=== PATIENT | male | born 1940 | race Caucasian/White ===

== ENCOUNTER 2017-02-19 00:13 | Inpatient (IN) | payer MEDICARE ==
[~2017-02-19] VITALS: Ht 172.7 cm; Wt 108.0 kg
[2017-02-19] MEDS ORDERED: ASCO500T9 PO (01:04)
[2017-02-19] MEDS ORDERED: IPRA0.2S6 NEB (01:04)
[2017-02-19] MEDS ORDERED: FURO-151 PO (01:04)
[2017-02-19] MEDS ORDERED: BLOO-140 IN (01:04)
[2017-02-19] MEDS ORDERED: ACET325T53 PO (01:04)
[2017-02-19] MEDS ORDERED: NA P133E RC (01:04)
[2017-02-19] MEDS ORDERED: DOCU-141 PO (01:04)
[2017-02-19] MEDS ORDERED: PANT40TA2 PO (01:04)
[2017-02-19] MEDS ORDERED: BISA10SU12 RC (01:04)
[2017-02-19] MEDS ORDERED: VITA1TAB20 PO (01:04)
[2017-02-19] MEDS ORDERED: INSU100V7 SQ (01:04)
[2017-02-19] MEDS ORDERED: METF500T4 PO (01:04)
[2017-02-19] MEDS ORDERED: ATOR10TA PO (01:04)
[2017-02-19] MEDS ORDERED: CARV3.122 PO (01:04)
[2017-02-19] MEDS ORDERED: POTA10CA43 PO (01:04)
[2017-02-19] MEDS ORDERED: FERR-58 PO (01:04)
[2017-02-19] MEDS ORDERED: ALBU8.5H8 IH (01:04)
[2017-02-19] MEDS ORDERED: MULT-213 PO (01:04)
[2017-02-19] MEDS ORDERED: MAGN400O6 PO (01:04)
[2017-02-19] MEDS ORDERED: ZOLP10TA2 PO (01:04)
[2017-02-19] MEDS ORDERED: APIX5TAB PO (01:04)
[2017-02-19 01:20] LABS: BASOPHILS % (AUTO) 0.3 % (0.0-2.0); EOSINOPHILS # (AUTO) 0.6 K/uL (0.0-0.7); EOSINOPHILS % (AUTO) 6.2 % (0.0-7.0); HEMATOCRIT 37.5 % (36.7-47.1); HEMOGLOBIN 12.3 g/dL (12.5-16.3); MEAN CORPUSCULAR HEMOGLOBIN 30.1 uug (23.8-33.4); MEAN CORPUSCULAR HGB CONC 33 g/dL (32.5-36.3); MONOCYTES # (AUTO) 1.1 K/uL (2.0-10.0); MONOCYTES % (AUTO) 12.7 % (0.0-11.0); NEUTROPHILS # (AUTO) 6.2 K/uL (1.8-8.9); NEUTROPHILS % (AUTO) 69.8 % (38.5-71.5); PLATELET COUNT (AUTO) 176 K/uL (152-348); RED BLOOD CELL COUNT(AUTO) 4.08 MIL/uL (4.06-5.63); WHITE BLOOD COUNT (AUTO) 8.9 K/uL (3.6-10.2)
--- NOTE | 2017-02-19 01:30 | NUR ---
Patient plced on Bipap as ordered by Dr Stephenson with setting of IPAP 17,EPAP 4,Rate 19, and 50% of o2
[2017-02-19 01:36] LABS: ALANINE AMINOTRANSFERASE 42 U/L (16-63); ALKALINE PHOSPHATASE 134 U/L (50-136); ASPARTATE AMINOTRANSFERASE 32 U/L (15-37); BILIRUBIN,DIRECT 0.7 mg/dL (0.0-0.2); BILIRUBIN,TOTAL 1.5 mg/dL (0.2-1.0); CARBON DIOXIDE 36 mmol/L (21-32); CHLORIDE 99 mmol/L (98-107); CREATININE 1.7 mg/dL (0.6-1.3); ETHANOL < 3 MG/DL (0-0); GLUCOSE 90 mg/dL (74-106); POTASSIUM 3.4 mmol/L (3.5-5.1); UREA NITROGEN, BLOOD 18 mg/dL (7-18)
[2017-02-19 01:44] LABS: ACETAMINOPHEN < 2.0 ug/mL (10-30)
[2017-02-19 02:01] LABS: *BILIRUBIN,URIN NEGATIVE (NEGATIVE); *BLOOD, URINE Trace-intact (NEGATIVE); *CLARITY,URINE CLEAR (CLEAR); *COLOR,URINE AMBER (YELLOW); *KETONES,URINE NEGATIVE (NEGATIVE); *PROTEIN,URINE NEGATIVE (NEGATIVE); *UROBILINOGEN,URINE 0.2 E.U./dl (NORMAL); LEUKOCYTE ESTERASE ,URINE NEGATIVE (NEGATIVE); NITRITE, URINE NEGATIVE (NEGATIVE); UGLUCOSE NEGATIVE (NEGATIVE)
[2017-02-19 02:14] LABS: BACTERIA,URINE NONE SEEN /HPF (NONE SEEN); SQUAMOUS EPITHELIAL CELL,UR FEW /HPF (NONE SEEN); WBC,URINE 0-3 /HPF (0-3)
[2017-02-19] MEDS ORDERED: POTASSIUM CHLORIDE 10 MEQ CAPSULE.SA PO ONE (02:30)
--- NOTE | 2017-02-19 02:30 | NUR ---
DR AVILES SPOKE WITH LUIS ANTONIO HARMON [employer] WORKER FOR [facility]. SHE WILL ADMIT PATIENT TO TELE FLOOR. NO BED AVAILABLE TO ADMIT PATIENT TO FLOOR AT THIS TIME. WILL HOLD PATIENT AT ER UNTIL BED AVAILABLE
[2017-02-19] MEDS ORDERED: LORAZEPAM 2 MG/1 ML VIAL IV ONE ×2 (02:45→03:15)
--- NOTE | 2017-02-19 02:48 | NUR ---
patient confused taking off bipap. Made Dr Stephenson aware
[2017-02-19] MEDS ORDERED: LORAZEPAM 2 MG/1 ML VIAL ONE ×2 (02:56→03:20)
--- NOTE | 2017-02-19 03:00 | NUR ---
PATIENT RESTLESS. TAKING CONSTANTLY TAKING OFF BIPAP. DR AVILES MADE AWARE.ORDER RECIEVED AND CARRIED OUT
[2017-02-19] MEDS ORDERED: POTASSIUM CHLORIDE 10 MEQ CAPSULE.SA ONE ×2 (03:11→10:13)
--- NOTE | 2017-02-19 03:50 | NUR ---
PATIENT SLEEPING WITH NO DISTRESS NOTED. TOLERATING BIPAP.
[2017-02-19] MEDS ORDERED: IPRATROPIUM BROMIDE 0.5 MG/2.5 ML NEBU NEB PRN (07:45)
[2017-02-19] MEDS ORDERED: ONDANSETRON 4 MG/2 ML VIAL IV PRN (07:45)
[2017-02-19] MEDS ORDERED: INSULIN REGULAR, HUMAN 300 UNIT/3 ML VIAL SQ PRN (07:45)
[2017-02-19] MEDS ORDERED: ACETAMINOPHEN 325 MG TABLET PO PRN ×2 (07:45)
[2017-02-19] MEDS ORDERED: Z GUARD REMEDY PASTE 57 GM TUBE TOP PRN (07:45)
[2017-02-19] MEDS ORDERED: ALBUTEROL SULFATE 2.5 MG/ 0.5 ML NEBU NEB PRN (07:45)
[2017-02-19] MEDS ORDERED: DEXTROSE 50% 50 ML DISP.SYRIN IV PRN (07:45)
[2017-02-19] MEDS ORDERED: ZOLPIDEM 5 MG TABLET PO PRN ×2 (07:45→21:00)
[2017-02-19] MEDS ORDERED: FLEET ENEMA 133 ML BOTTLE RC PRN (07:45)
[2017-02-19] MEDS ORDERED: BISACODYL 10 MG SUPP.RECT RC PRN (07:45)
[2017-02-19] MEDS ORDERED: MAGNESIUM HYDROXIDE 30 ML LIQUID UDC PO PRN ×2 (07:45)
[2017-02-19] MEDS ORDERED: FUROSEMIDE 40 MG TABLET PO SCH (09:00)
[2017-02-19] MEDS ORDERED: APIXABAN 5 MG TABLET PO ONE (10:00)
[2017-02-19] MEDS ORDERED: IPRATROPIUM BROMIDE 0.5 MG/2.5 ML NEBU ONE (10:02)
[2017-02-19] MEDS ORDERED: ALBUTEROL SULFATE 2.5 MG/ 0.5 ML NEBU ONE (10:03)
[2017-02-19] MEDS ORDERED: ASCORBIC ACID 500 MG TABLET ONE (10:09)
[2017-02-19] MEDS ORDERED: DOCUSATE SODIUM 100 MG CAPSULE PO ONE (10:10)
[2017-02-19] MEDS ORDERED: CARVEDILOL 3.125 MG TABLET ONE (10:10)
[2017-02-19] MEDS: ASCORBIC ACID 500 MG TABLET PO SCH (10:12)
[2017-02-19] MEDS ORDERED: PANTOPRAZOLE SODIUM 40 MG TABLET.DR PO ONE (10:13)
[2017-02-19] MEDS: CARVEDILOL 3.125 MG TABLET PO SCH ×2 (10:13→17:43)
[2017-02-19] MEDS: DOCUSATE SODIUM 100 MG CAPSULE PO SCH (10:17)
[2017-02-19] MEDS: POTASSIUM CHLORIDE 10 MEQ CAPSULE.SA PO SCH (10:18)
[2017-02-19] MEDS: PANTOPRAZOLE SODIUM 40 MG TABLET.DR PO SCH (10:18)
[2017-02-19] MEDS ORDERED: FUROSEMIDE 20 MG TABLET ONE (10:38)
--- NOTE | 2017-02-19 11:15 | NUR ---
PT ABLE TO GET UP WITH PT FOR TX. REMAINS STANLE ON NASAL O2.
[2017-02-19] MEDS: VITAMIN B COMPLEX 1 TABLET PO SCH (11:32)
[2017-02-19] MEDS: MULTIVITAMINS,THERAPEUTIC TABLET PO SCH (11:33)
[2017-02-19] MEDS: FERROUS SULFATE 325 MG TABEC PO SCH ×2 (11:35→17:42)
[2017-02-19] MEDS: BLOOD SUGAR DIAGNOSTIC 1 EACH STRIP VI SCH ×3 (11:52→20:32)
--- NOTE | 2017-02-19 14:30 | NUR ---
VENOUS DOPPLER US DONE AT BEDSIDE.
--- NOTE | 2017-02-19 16:30 | NUR ---
REPORT GIVEN TO ALANIS ORDONEZ. PT REMAINS AWAKE , VERBALLY RESPONSIVE AND COOPERATIVE. TRANSFERRED TO TELEMETRY IN GUARDED CONDITION.
--- NOTE | 2017-02-19 17:00 | NUR ---
NEW PATIENT FROM ER TO ROOM 227 AWAKE COOPERATE WELL SOME FORGETFUL BUT FOLLOW SIMPLE DIRECTION WELL ON FALL AND ASPIRATION PRECAUTION BED ALARM ON AND CALL LIGHT IN REACH
[2017-02-19 17:09] VITALS: BP 124/55
--- NOTE | 2017-02-19 18:00 | NUR ---
EAT DINNER WITH GOOD APPETITE NO SOB CONTINUE O2 AT 2L O2 SAT WAS 98% DR BECKETT SEEN PATIENT THIS PM
[2017-02-19 19:30] VITALS: BP 121/67
--- NOTE | 2017-02-19 19:30 | NUR ---
Received patient laying in bed. HOB elevated. A&O x 2 only. On O2 2L NC. TELE SR. No acute distress noted. Noted multiple open wounds and bruises on bilateral lower and upper extremities. Safety initiated. Call light within reach. Room is kept clutter free. Bed is in low and locked position. Will continue to monitor.
[2017-02-19] MEDS: ACETAzolamide SODIUM 500 MG VIAL IV SCH (20:27)
[2017-02-19] MEDS: ATORVASTATIN 10 MG TABLET PO SCH (20:27)
[2017-02-19] MEDS: INSULIN DETEMIR 300 UNIT/3 ML CARTRIDGE SQ SCH (20:31)
[2017-02-19] MEDS ORDERED: INSULIN GLARGINE,HUM 300 UNITS/3 ML CARTRIDGE SQ SCH (21:00)
[2017-02-20] VITALS: BP 108/49
[2017-02-20 01:51] LABS: *BILIRUBIN,URIN NEGATIVE (NEGATIVE); *BLOOD, URINE 2+ (NEGATIVE); *CLARITY,URINE SLIGHTLY CLOUDY (CLEAR); *COLOR,URINE YELLOW (YELLOW); *KETONES,URINE NEGATIVE (NEGATIVE); *PROTEIN,URINE 1+ (NEGATIVE); LEUKOCYTE ESTERASE ,URINE 2+ (NEGATIVE); NITRITE, URINE NEGATIVE (NEGATIVE); PH,URINE 7.5 (5.0-8.0); UGLUCOSE NEGATIVE (NEGATIVE)
[2017-02-20 02:27] LABS: BACTERIA,URINE MODERATE /HPF (NONE SEEN); RBC,URINE 20-50 /HPF (0-3); SQUAMOUS EPITHELIAL CELL,UR FEW /HPF (NONE SEEN); WBC,URINE 20-50 /HPF (0-3)
[2017-02-20 02:49] LABS: *CREATININE,URINE 126.8 mg/dL (30-125); *URINE TOTAL PROTEIN RANDOM 32.5 mg/dL (<150/24HR)
[2017-02-20 04:00] VITALS: BP 113/62
--- NOTE | 2017-02-20 05:26 | NUR ---
Patient slept t/o shift. No acute distress noted. On O2 2L NC. Tele SR. Urinating well on diaper. Vital Signs stable. Wound dressing provided. All meds given as ordered. All needs met. Safety and comfort measures maintained t/o shift
[2017-02-20] MEDS: PANTOPRAZOLE SODIUM 40 MG TABLET.DR PO SCH (06:11)
[2017-02-20] MEDS: BLOOD SUGAR DIAGNOSTIC 1 EACH STRIP VI SCH ×4 (07:18→22:02)
[2017-02-20 07:37] LABS: BASOPHILS % (AUTO) 0.4 % (0.0-2.0); EOSINOPHILS # (AUTO) 0.8 K/uL (0.0-0.7); EOSINOPHILS % (AUTO) 12.3 % (0.0-7.0); LYMPHOCYTES # (AUTO) 1.2 K/uL (20.0-40.0); LYMPHOCYTES % (AUTO) 20.3 % (20.5-51.5); MEAN CORPUSCULAR HEMOGLOBIN 29.9 uug (23.8-33.4); MEAN CORPUSCULAR HGB CONC 32 g/dL (32.5-36.3); MEAN CORPUSCULAR VOLUME 94.5 fL (73.0-96.2); MONOCYTES # (AUTO) 0.9 K/uL (2.0-10.0); MONOCYTES % (AUTO) 14.6 % (0.0-11.0); NEUTROPHILS # (AUTO) 3.2 K/uL (1.8-8.9); NEUTROPHILS % (AUTO) 52.4 % (38.5-71.5); PLATELET COUNT (AUTO) 156 K/uL (152-348); RED BLOOD CELL COUNT(AUTO) 4.02 MIL/uL (4.06-5.63); WHITE BLOOD COUNT (AUTO) 6.1 K/uL (3.6-10.2)
[2017-02-20 07:46] LABS: ALANINE AMINOTRANSFERASE 33 U/L (16-63); ALKALINE PHOSPHATASE 121 U/L (50-136); ASPARTATE AMINOTRANSFERASE 25 U/L (15-37); BILIRUBIN,TOTAL 1.1 mg/dL (0.2-1.0); CARBON DIOXIDE 34 mmol/L (21-32); CHLORIDE 101 mmol/L (98-107); CREATININE 1.5 mg/dL (0.6-1.3); GLUCOSE 73 mg/dL (74-106); MAGNESIUM 1.8 mg/dL (1.8-2.4); PHOSPHOROUS 5.6 mg/dL (2.5-4.9); POTASSIUM 3.8 mmol/L (3.5-5.1); TOTAL PROTEIN, SERUM 6.6 g/dL (6.4-8.2); UREA NITROGEN, BLOOD 19 mg/dL (7-18)
[2017-02-20] MEDS: ASCORBIC ACID 500 MG TABLET PO SCH (09:18)
[2017-02-20] MEDS: POTASSIUM CHLORIDE 10 MEQ CAPSULE.SA PO SCH (09:18)
[2017-02-20] MEDS: FERROUS SULFATE 325 MG TABEC PO SCH ×2 (09:18→16:36)
[2017-02-20] MEDS: DOCUSATE SODIUM 100 MG CAPSULE PO SCH (09:18)
[2017-02-20] MEDS: MULTIVITAMINS,THERAPEUTIC TABLET PO SCH (09:18)
[2017-02-20] MEDS: CARVEDILOL 3.125 MG TABLET PO SCH ×2 (09:23→16:57)
[2017-02-20] MEDS: ACETAzolamide SODIUM 500 MG VIAL IV SCH (09:24)
[2017-02-20 10:02] LABS: ABG BASE EXCESS 5.4 mmol/L; ABG HCO3 33.7 mmol/L; ABG PCO2 68.6 mmHg (35.0-45.0); ABG PH 7.309 (7.350-7.450); ABG PO2 117.1 mmHg (75.0-100.0); ABG SITE LEFT RADIAL; ABG TOTAL HEMOGLOBIN 12.4 G/dL (13.5-18.0); COHb 1.3 % (0.5-1.5); MetHb 0.3 % (0.0-1.5); O2Hb 96.7 % (94.0-97.0); VENT MODE Nasal Cannula
[2017-02-20] MEDS: VITAMIN B COMPLEX 1 TABLET PO SCH (10:12)
--- NOTE | 2017-02-20 10:20 | NUR ---
NOTIFIED BY RT AT 1015 ABOUT CO2 LEVEL OF 68.6. NOTIFIED.
[2017-02-20 11:10] VITALS: BP 124/64
[2017-02-20] MEDS ORDERED: APIXABAN 5 MG TABLET PO ONE (11:30)
[2017-02-20 15:39] VITALS: BP 124/57
[2017-02-20] MEDS: APIXABAN 5 MG TABLET PO SCH (16:58)
[2017-02-20] MEDS ORDERED: Z GUARD REMEDY PASTE 57 GM TUBE TOP PRN (17:15)
--- NOTE | 2017-02-20 18:59 | NUR ---
PT HAD C/O ABDOMINAL PAIN TODAY. BLADDER SCAN SHOWED 1,000 ML IN BLADDER. DOCTOR NOTIFIED. HARDING ORDERED. PT HAD HARDING INSERTED AND IS NOW NOT FEELING ABDOMINAL PAIN. PT STATES " WHAT A RELIEF!" PT CALM, COOPERATIVE, AND RESTING.
[2017-02-20] MEDS: INSULIN DETEMIR 300 UNIT/3 ML CARTRIDGE SQ SCH (21:00)
[2017-02-20] MEDS: ATORVASTATIN 10 MG TABLET PO SCH (21:58)
[2017-02-20 22:43] VITALS: BP 111/60
[2017-02-20] MEDS ORDERED: INSULIN DETEMIR 300 UNIT/3 ML CARTRIDGE SQ ONE (23:22)
[2017-02-21 05:30] VITALS: BP 139/56
[2017-02-21] MEDS: PANTOPRAZOLE SODIUM 40 MG TABLET.DR PO SCH (06:00)
[2017-02-21] MEDS: BLOOD SUGAR DIAGNOSTIC 1 EACH STRIP VI SCH ×3 (06:32→16:01)
--- NOTE | 2017-02-21 06:36 | NUR ---
Pt slept a few hours, anxious, worried and expressed concern of financial burden. Pt is anxious to be discharged due to financial obligations. Will refer to social worker school. Patient resting in bed, no distress, no SOB. Saldana cath intact/patent, draining yellow dark urine. Accuchecks done as ordered, no s/s of hypo/hyperglycemia noted. Safety measures in place. Will continue to monitor.
[2017-02-21 06:56] LABS: BASOPHILS % (AUTO) 0.5 % (0.0-2.0); EOSINOPHILS # (AUTO) 0.8 K/uL (0.0-0.7); HEMATOCRIT 37.4 % (36.7-47.1); LYMPHOCYTES # (AUTO) 1.3 K/uL (20.0-40.0); LYMPHOCYTES % (AUTO) 16.6 % (20.5-51.5); MEAN CORPUSCULAR HEMOGLOBIN 29.9 uug (23.8-33.4); MEAN CORPUSCULAR HGB CONC 32 g/dL (32.5-36.3); MEAN CORPUSCULAR VOLUME 93.4 fL (73.0-96.2); MONOCYTES # (AUTO) 0.8 K/uL (2.0-10.0); MONOCYTES % (AUTO) 10.9 % (0.0-11.0); NEUTROPHILS # (AUTO) 4.6 K/uL (1.8-8.9); PLATELET COUNT (AUTO) 167 K/uL (152-348); WHITE BLOOD COUNT (AUTO) 7.6 K/uL (3.6-10.2)
[2017-02-21 07:07] LABS: ALANINE AMINOTRANSFERASE 36 U/L (16-63); ASPARTATE AMINOTRANSFERASE 26 U/L (15-37); BILIRUBIN,TOTAL 0.9 mg/dL (0.2-1.0); CARBON DIOXIDE 34 mmol/L (21-32); CHLORIDE 101 mmol/L (98-107); CREATININE 1.4 mg/dL (0.6-1.3); GLUCOSE 119 mg/dL (74-106); PHOSPHOROUS 3.4 mg/dL (2.5-4.9); POTASSIUM 3.7 mmol/L (3.5-5.1); TOTAL PROTEIN, SERUM 7.2 g/dL (6.4-8.2); UREA NITROGEN, BLOOD 17 mg/dL (7-18)
[2017-02-21] MEDS: MULTIVITAMINS,THERAPEUTIC TABLET PO SCH (08:01)
[2017-02-21] MEDS: DOCUSATE SODIUM 100 MG CAPSULE PO SCH (08:02)
[2017-02-21] MEDS: CARVEDILOL 3.125 MG TABLET PO SCH ×2 (08:02→17:00)
[2017-02-21] MEDS: ASCORBIC ACID 500 MG TABLET PO SCH (08:02)
[2017-02-21] MEDS: POTASSIUM CHLORIDE 10 MEQ CAPSULE.SA PO SCH (08:02)
[2017-02-21] MEDS: FERROUS SULFATE 325 MG TABEC PO SCH ×2 (08:02→17:51)
[2017-02-21] MEDS: VITAMIN B COMPLEX 1 TABLET PO SCH (08:03)
[2017-02-21] MEDS: APIXABAN 5 MG TABLET PO SCH ×2 (08:04→17:51)
[2017-02-21] MEDS: ACETAzolamide SODIUM 500 MG VIAL IV SCH (08:04)
[2017-02-21 08:51] LABS: ALKALINE PHOSPHATASE 126 U/L (50-136); MAGNESIUM 1.8 mg/dL (1.8-2.4)
--- NOTE | 2017-02-21 10:50 | NUR ---
CALLED PHARMACY FOR ROCEPHIN ORDER. ROCEPHIN IS NOT ON THE UNIT FOR PT.
[2017-02-21] MEDS ORDERED: CEFTRIAXONE 1 G in IV DEXTROSE 5% 50 ML IV SCH (11:00)
--- NOTE | 2017-02-21 11:30 | NUR ---
CALLED PHARMACY FOR ROCEPHIN MEDICATION FOR PT. IT WAS DUE [id number].
--- NOTE | 2017-02-21 11:30 | NUR ---
PT BLOOD SUGAR 157 PT REFUSED INSULIN.
[2017-02-21 11:49] VITALS: BP 104/44
--- NOTE | 2017-02-21 12:10 | NUR ---
CALLED FOR ROCEPHIN MEDICATION IS LATE.
--- NOTE | 2017-02-21 12:30 | NUR ---
ROCEPHIN RECEIVED FROM PHARMACY AT 1230 AND GIVEN AT 1238.
[2017-02-21] MEDS ORDERED: MINERAL OIL/PETROLATUM,WHITE 57 GM TUBE TOP PRN (12:45)
[2017-02-21] MEDS ORDERED: BACITRACIN/POLYMYXIN B OINT 15 GM TUBE TOP ONE (12:45)
--- NOTE | 2017-02-21 12:45 | NUR ---
WOUND CARE CONSULT: PT PRESENTS WITH LEFT ANTERIOR LOWER LEG WOUND AND RT ANTERIOR LOWER LEG HEALING WOUND, PRESENT ON ADMISSION. RECOMMENDATIONS MADE FOR SKIN PROTECTION AND WOUND CARE. DISCUSSED WITH NURSING STAFF. ALL SKIN PROTECTION MEASURES IN PLACE. CURRENT VENKAT SCORE IS 16. WILL SEE PRN. AQUINO IN AGREEMENT WITH PLAN OF CARE. Addendum: 02/21/17 at 1247 by JESSICA JOHN RN Amended: Links added.
[2017-02-21] MEDS ORDERED: INSU100V28 SQ (14:36)
[2017-02-21] MEDS ORDERED: ACET500V2 IV (14:40)
[2017-02-21] MEDS ORDERED: CLOT30CR24 TOP (14:40)
[2017-02-21] MEDS ORDERED: NITR100C6 PO (14:40)
[2017-02-21 16:15] VITALS: BP 102/66
--- NOTE | 2017-02-21 16:30 | NUR ---
PT BLOOD SUGAR 97, NO COVERAGE PER SLIDING SCALE.
[2017-02-21 17:00] VITALS: BP 102/66
--- NOTE | 2017-02-21 18:10 | NUR ---
PT TO DISCHARGE TO [facility], REPORT GIVEN TO EVERETT THE NURSE. PT IS CALM, COOPERATIVE, STABLE AT THIS TIME. PT D/C WITH EXITCARE PACKET, ALL BELONGINGS AND VALUABLES. PT IV REMOVED, ID BAND REMOVED. COREG HELD DUE TO LOW SBP 102. PT WAS AOX1.
[2017-02-21] MEDS ORDERED: CLOTRIMAZOLE 1% CREAM 30 GM TUBE TOP SCH (21:00)
== END 2017-02-21 06:45 | DRG 189 ==
LOC: ER 00:21 → UNDOADMOB 03:11 → OBSER 03:11 → MED 07:45 → OBSVTOIN 07:45 → INTOOBSV 07:45 → OBSER 16:28 → TELE 16:28 → MED 02-20 20:30 → TELE 02-20 20:30 → UNDODISOB 02-21 18:45 → MED 03-07 19:19
PROVIDERS: ADMIT Nurse Practitioner Acute Care; ATTEND Nurse Practitioner Acute Care
PROC: 5A09357 Assistance with Respiratory Ventilation, Less than 24 Consecutive Hours, Continuous Positive Airway Pressure (ICD-10-PCS; principal; 2017-02-19)
DX: J96.22 Acute and chronic respiratory failure with hypercapnia (principal); N17.0 Acute kidney failure with tubular necrosis; G93.40 Encephalopathy, unspecified; E11.22 Type 2 diabetes mellitus with diabetic chronic kidney disease; D68.59 Other primary thrombophilia; J90 Pleural effusion, not elsewhere classified; E66.2 Morbid (severe) obesity with alveolar hypoventilation; R17 Unspecified jaundice; N13.30 Unspecified hydronephrosis; N39.0 Urinary tract infection, site not specified; N13.9 Obstructive and reflux uropathy, unspecified; I48.91 Unspecified atrial fibrillation; J96.11 Chronic respiratory failure with hypoxia; Z86.74 Personal history of sudden cardiac arrest; I13.10 Hypertensive heart and chronic kidney disease without heart failure, with stage 1 through stage 4 chronic kidney disease, or unspecified chronic kidney disease; Z96.651 Presence of right artificial knee joint; Z68.36 Body mass index [BMI] 36.0-36.9, adult; Z79.4 Long term (current) use of insulin; N18.9 Chronic kidney disease, unspecified; Z79.899 Other long term (current) drug therapy; Z85.828 Personal history of other malignant neoplasm of skin; Z79.01 Long term (current) use of anticoagulants; F39 Unspecified mood [affective] disorder; E78.5 Hyperlipidemia, unspecified; F03.90 Unspecified dementia, unspecified severity, without behavioral disturbance, psychotic disturbance, mood disturbance, and anxiety; E87.6 Hypokalemia; G47.33 Obstructive sleep apnea (adult) (pediatric); I25.10 Atherosclerotic heart disease of native coronary artery without angina pectoris; I45.10 Unspecified right bundle-branch block; Z72.0 Tobacco use; I67.2 Cerebral atherosclerosis
CPT/HCPCS: 36415; 36600; 70450; 71045; 76770; 83735; 84100; 84156; 84300; 85025; 85730; 92610; 93005; 93307; 97110; 97116; 97530; A4663; C1758; G0378; G0480; G0480-TC; J0696; J1120; J1815; J2060; J3490; J3590; J7060

== ENCOUNTER 2017-03-11 19:54 | Inpatient (IN) | payer MEDICARE ==
[~2017-03-11] VITALS: Ht 172.7 cm; Wt 112.0 kg
[~2017-03-11 19:54] MED LIST: ACET325T53 PO; ACET500V2 IV; ALBU8.5H8 IH; APIX5TAB PO; ASCO500T9 PO; ATOR10TA PO; BISA10SU12 RC; BLOO-140 IN; CARV3.122 PO; CLOT30CR24 TOP; DOCU-141 PO; FERR-58 PO; FURO-151 PO; INSU100V28 SQ; INSU100V7 SQ; IPRA0.2S6 NEB; MAGN400O6 PO; MULT-213 PO; NA P133E RC; NITR100C6 PO; PANT40TA2 PO; POTA10CA43 PO; VITA1TAB20 PO; ZOLP10TA2 PO
[2017-03-11] MEDS ORDERED: ALBUTEROL SULFATE 2.5 MG/ 0.5 ML NEBU NEB ONE (20:30)
[2017-03-11] MEDS ORDERED: ALBUTEROL SULFATE 2.5 MG/ 0.5 ML NEBU ONE (20:49)
[2017-03-11] MEDS ORDERED: AMIN30LI2 PO (20:52)
[2017-03-11] MEDS ORDERED: BENZ1LOZ58 MM (20:52)
[2017-03-11] MEDS ORDERED: CRAN425C6 PO (20:52)
[2017-03-11] MEDS ORDERED: TAMS-3 PO (20:53)
[2017-03-11] MEDS ORDERED: ACET500C43 PO (20:53)
[2017-03-11 21:18] LABS: BASOPHILS % (AUTO) 0.3 % (0.0-2.0); EOSINOPHILS % (AUTO) 0.3 % (0.0-7.0); HEMATOCRIT 32.6 % (36.7-47.1); HEMOGLOBIN 10.7 g/dL (12.5-16.3); LYMPHOCYTES # (AUTO) 0.8 K/uL (20.0-40.0); LYMPHOCYTES % (AUTO) 5.5 % (20.5-51.5); MEAN CORPUSCULAR HEMOGLOBIN 29.4 uug (23.8-33.4); MEAN CORPUSCULAR HGB CONC 33 g/dL (32.5-36.3); MEAN CORPUSCULAR VOLUME 89.5 fL (73.0-96.2); MONOCYTES # (AUTO) 1.2 K/uL (2.0-10.0); MONOCYTES % (AUTO) 8.5 % (0.0-11.0); NEUTROPHILS # (AUTO) 12.4 K/uL (1.8-8.9); NEUTROPHILS % (AUTO) 85.4 % (38.5-71.5); PLATELET COUNT (AUTO) 130 K/uL (152-348); RED BLOOD CELL COUNT(AUTO) 3.65 MIL/uL (4.06-5.63); WHITE BLOOD COUNT (AUTO) 14.5 K/uL (3.6-10.2)
[2017-03-11 21:27] LABS: CARBON DIOXIDE 31 mmol/L (21-32); CHLORIDE 96 mmol/L (98-107); CREATININE 1.3 mg/dL (0.6-1.3); GLUCOSE 170 mg/dL (74-106); POTASSIUM 4.5 mmol/L (3.5-5.1); UREA NITROGEN, BLOOD 24 mg/dL (7-18)
[2017-03-11 21:33] LABS: *BILIRUBIN,URIN NEGATIVE (NEGATIVE); *BLOOD, URINE 3+ (NEGATIVE); *CLARITY,URINE SLIGHTLY CLOUDY (CLEAR); *COLOR,URINE YELLOW (YELLOW); *KETONES,URINE NEGATIVE (NEGATIVE); *PROTEIN,URINE 2+ (NEGATIVE); *UROBILINOGEN,URINE 0.2 E.U./dl (NORMAL); LEUKOCYTE ESTERASE ,URINE 2+ (NEGATIVE); NITRITE, URINE NEGATIVE (NEGATIVE); PH,URINE 5.5 (5.0-8.0); UGLUCOSE NEGATIVE (NEGATIVE)
[2017-03-11 21:38] LABS: ALANINE AMINOTRANSFERASE 31 U/L (16-63); ALKALINE PHOSPHATASE 105 U/L (50-136); ASPARTATE AMINOTRANSFERASE 22 U/L (15-37); BILIRUBIN,DIRECT 0.4 mg/dL (0.0-0.2); BILIRUBIN,TOTAL 1.2 mg/dL (0.2-1.0); TOTAL PROTEIN, SERUM 7.4 g/dL (6.4-8.2)
[2017-03-11 21:47] LABS: BACTERIA,URINE MANY /HPF (NONE SEEN); RBC,URINE 20-50 /HPF (0-3); SQUAMOUS EPITHELIAL CELL,UR MODERATE /HPF (NONE SEEN); WBC,URINE 20-50 /HPF (0-3)
[2017-03-11] MEDS ORDERED: CEFTRIAXONE 1 G in IV DEXTROSE 5% 50 ML IV ONE (23:00)
--- NOTE | 2017-03-11 23:00 | NUR ---
[facility]
[2017-03-11] MEDS ORDERED: CEFTRIAXONE 1 G VIAL ONE (23:17)
--- NOTE | 2017-03-11 23:18 | NUR ---
Unable to give report at this time, patient will remain in ER until staff available.
--- NOTE | 2017-03-12 00:35 | NUR ---
Pt. admitted to [facility], under care of Dr. Lopez Belongs List completed
--- NOTE | 2017-03-12 00:47 | NUR ---
RECEIVED PT FROM ER BY Saurav ARANGO. PT IS AWAKE, ALERT AND ORIENTED. PT IS ADMITTED TO TELEMETRY UNDER THE CARE OF DR. CORNEJO. DX:UTI, HEMATURIA. BELONGING LIST DONE. ADMISSION PROCESS AND CARE PLAN INITIATED. NEW ADMISSION. SAFETY AND COMFORT PROVIDED. CALL LIGHT WITHIN REACH. WILL CONTINUE TO MONITOR.
[2017-03-12 01:09] VITALS: BP 117/58
[2017-03-12] MEDS ORDERED: ACETAMINOPHEN 325 MG TABLET PO PRN ×2 (01:15)
[2017-03-12] MEDS ORDERED: ALBUTEROL SULFATE 1.25 MG/3 ML NEBU NEB PRN (01:15)
[2017-03-12] MEDS ORDERED: TEMAZEPAM 15 MG CAPSULE PO PRN (01:15)
[2017-03-12] MEDS ORDERED: Medication Not On Formulary EA (Zolpidem Tartrate (Ambien) 10 MG) PO PRN (01:15)
[2017-03-12] MEDS ORDERED: BISACODYL 10 MG SUPP.RECT RC PRN (01:15)
[2017-03-12] MEDS ORDERED: IPRATROPIUM BROMIDE 0.5 MG/2.5 ML NEBU NEB PRN (01:15)
[2017-03-12] MEDS ORDERED: MORPHINE SULFATE 2 MG/1 ML DISP.SYRIN IV PRN (01:15)
[2017-03-12] MEDS ORDERED: ONDANSETRON 4 MG/2 ML VIAL IV PRN (01:15)
[2017-03-12] MEDS ORDERED: CEFTRIAXONE 1 G in IV DEXTROSE 5% 50 ML IV SCH (01:15)
--- NOTE | 2017-03-12 01:15 | NUR ---
ROCEPHIN WAS GIVEN IN ER BEFORE GOING TO MED SURG FLOOR SO I DIDN'T ADMINISTER THE ROCEPHIN.CHARGE NURSE NOTIFIED.
[2017-03-12 04:00] VITALS: BP 113/40
--- NOTE | 2017-03-12 05:51 | NUR ---
PT SLEPT T/O SHIFT. PT ASKED FOR SLEEPING PILL (RESTORIL).VITAL SIGNS WNL. NO SIGNS OF DISTRESS. IV INTACT AND PATENT.SAFETY AND COMFORT PROVIDED.
--- NOTE | 2017-03-12 07:00 | NUR ---
Received client trying to get up from bed. Alert awake and oriented times 3. Helped the client sit by the edge of the bed and gave him water as requested. Bed at lowest position for safety and call light within reach for assistance
[2017-03-12 07:07] LABS: ALANINE AMINOTRANSFERASE 25 U/L (16-63); ALKALINE PHOSPHATASE 96 U/L (50-136); ASPARTATE AMINOTRANSFERASE 23 U/L (15-37); BILIRUBIN,TOTAL 1.3 mg/dL (0.2-1.0); CARBON DIOXIDE 32 mmol/L (21-32); CHLORIDE 96 mmol/L (98-107); CREATININE 1.2 mg/dL (0.6-1.3); GLUCOSE 153 mg/dL (74-106); MAGNESIUM 1.6 mg/dL (1.8-2.4); PHOSPHOROUS 3.7 mg/dL (2.5-4.9); POTASSIUM 4.3 mmol/L (3.5-5.1); UREA NITROGEN, BLOOD 20 mg/dL (7-18)
[2017-03-12 07:27] LABS: BASOPHILS % (AUTO) 0.4 % (0.0-2.0); EOSINOPHILS # (AUTO) 0.1 K/uL (0.0-0.7); EOSINOPHILS % (AUTO) 0.7 % (0.0-7.0); LYMPHOCYTES # (AUTO) 0.6 K/uL (20.0-40.0); MONOCYTES # (AUTO) 0.7 K/uL (2.0-10.0)
[2017-03-12] MEDS ORDERED: MORPHINE SULFATE 4 MG/1 ML DISP.SYRIN IV PRN (07:30)
[2017-03-12 07:39] LABS: HEMATOCRIT 31.6 % (36.7-47.1); HEMOGLOBIN 10.6 g/dL (12.5-16.3); LYMPHOCYTES % (AUTO) 6.4 % (20.5-51.5); MEAN CORPUSCULAR HEMOGLOBIN 29.9 uug (23.8-33.4); MEAN CORPUSCULAR HGB CONC 34 g/dL (32.5-36.3); MONOCYTES % (AUTO) 7.8 % (0.0-11.0); NEUTROPHILS # (AUTO) 8.1 K/uL (1.8-8.9); NEUTROPHILS % (AUTO) 84.7 % (38.5-71.5); PLATELET COUNT (AUTO) 106 K/uL (152-348); RED BLOOD CELL COUNT(AUTO) 3.55 MIL/uL (4.06-5.63)
[2017-03-12 07:44] LABS: WHITE BLOOD COUNT (AUTO) 9.6 K/uL (3.6-10.2)
[2017-03-12 08:19] LABS: IRON, SERUM 15 ug/dL (50-175)
[2017-03-12] MEDS: DOCUSATE SODIUM 100 MG CAPSULE PO SCH (08:29)
[2017-03-12] MEDS: FERROUS SULFATE 325 MG TABEC PO SCH ×2 (08:29→17:08)
[2017-03-12] MEDS: CARVEDILOL 3.125 MG TABLET PO SCH ×2 (08:30→17:09)
[2017-03-12] MEDS: TAMSULOSIN HCL 0.4 MG CAP.SR.24H PO SCH ×2 (08:30→21:08)
[2017-03-12] MEDS: ASCORBIC ACID 500 MG TABLET PO SCH (08:30)
[2017-03-12] MEDS: MULTIVIT, IRON, MIN NO. 8, FA TABLET PO SCH (08:30)
[2017-03-12] MEDS: PROTEIN SUPPLEMENT (PROSTAT) 30 ML LIQUID PO SCH (08:30)
[2017-03-12] MEDS ORDERED: Medication Not On Formulary EA (Multivitamins W-Minerals (Multivitamin With Minerals) 1 PO SCH (09:00)
[2017-03-12] MEDS ORDERED: Medication Not On Formulary EA (Amino Acids/Protein Hydrolys (Pro-Stat Liquid) 30 ML) PO SCH (09:00)
[2017-03-12] MEDS: PANTOPRAZOLE SODIUM 40 MG TABLET.DR PO SCH (09:03)
[2017-03-12] MEDS ORDERED: MAGNESIUM SULFATE/D5W 100 ML IV SCH ×2 (10:30→14:15)
[2017-03-12 11:36] VITALS: BP 112/55
--- NOTE | 2017-03-12 12:00 | NUR ---
PT jenae ordered. Client wants to walk on his own, for safety purposes needs to be assessed first.
[2017-03-12 15:17] VITALS: BP 119/47
[2017-03-12] MEDS ORDERED: GUAIFENESIN/DEXTROMETHORPHAN 5 ML UDC PO PRN (16:15)
--- NOTE | 2017-03-12 19:30 | NUR ---
Received pt on bed. awake and alert. Iv intact and patent. Pt has marbella. call light within reach. bed alarm on.
--- NOTE | 2017-03-12 19:39 | NUR ---
Client has been complaint with all nursing care throughout the day. Medications tolerated well. Orders explained throughout the shift. Client has been able to sit in chair and eat B-L-D. F/C noted with blood tint and tea color urine. Bed at lowest position foe safety and call light within reach for assistance.
[2017-03-12 20:00] VITALS: BP 111/56
[2017-03-12] MEDS ORDERED: BLOOD SUGAR DIAGNOSTIC 1 EACH STRIP VI SCH (21:00)
[2017-03-12] MEDS: INSULIN DETEMIR 300 UNIT/3 ML CARTRIDGE SQ SCH (21:02)
[2017-03-12] MEDS: ATORVASTATIN 10 MG TABLET PO SCH (21:06)
--- NOTE | 2017-03-12 21:10 | NUR ---
Pharmacy clinical note-Vancomycin dosing per pharmacy S:To start Vancomycin dosing on this patient for documented infection(no md note yet) O: BUN 20 Scr 1.2 WBC 9.6 Temp 100.2 A/P: Will start Vancomycin 1500mg IV every 18hrs and draw trough by 4th dose(not ordered yet) for expected trough around 16. Will follow daily.
[2017-03-12] MEDS: VANCOMYCIN IV 1,500 MG in IV NORMAL SALINE 500 ML IV SCH (21:30)
[2017-03-12] MEDS ORDERED: MIRALAX 17 GM POWD.PACK PO ONE (21:45)
[2017-03-12] MEDS: ZOLPIDEM 5 MG TABLET PO PRN (22:05)
[2017-03-12] MEDS ORDERED: MIRALAX 17 GM POWD.PACK ONE (22:06)
--- NOTE | 2017-03-12 22:15 | NUR ---
Pt signed the informed consent to the ct scan for the abdomen and pelvis procedure to be done tomorrow morning 03/13/17, explained everything to the pt and pt understood it. Put it on the medical record of the pt.
[2017-03-12] MEDS ORDERED: VANCOMYCIN HCL 500 MG VIAL ONE (22:47)
[2017-03-12] MEDS ORDERED: VANCOMYCIN 1000 MG VIAL ONE (22:47)
--- NOTE | 2017-03-12 23:55 | NUR ---
Pt tried to go to bathroom for defecation but couldn't . He said the urgency is there. Urine specimen submiitted to the lab. Will conitue to monitor the pt.
[2017-03-13] VITALS: BP 113/56
[2017-03-13 00:12] LABS: *BILIRUBIN,URIN NEGATIVE (NEGATIVE); *BLOOD, URINE 3+ (NEGATIVE); *CLARITY,URINE CLOUDY (CLEAR); *COLOR,URINE YELLOW (YELLOW); *KETONES,URINE NEGATIVE (NEGATIVE); *PROTEIN,URINE 2+ (NEGATIVE); *UROBILINOGEN,URINE 0.2 E.U./dl (NORMAL); LEUKOCYTE ESTERASE ,URINE 3+ (NEGATIVE); NITRITE, URINE NEGATIVE (NEGATIVE); PH,URINE 5.5 (5.0-8.0); UGLUCOSE NEGATIVE (NEGATIVE)
[2017-03-13 00:21] LABS: *CREATININE,URINE 125.4 mg/dL (30-125)
[2017-03-13 00:57] LABS: BACTERIA,URINE MODERATE /HPF (NONE SEEN); RBC,URINE 20-50 /HPF (0-3); SQUAMOUS EPITHELIAL CELL,UR FEW /HPF (NONE SEEN); WBC,URINE 50-80 /HPF (0-3)
[2017-03-13] MEDS: CEFTRIAXONE 1 G in IV NORMAL SALINE 50 ML IV SCH ×2 (02:51→22:24)
[2017-03-13 04:00] VITALS: BP 118/59
[2017-03-13 06:23] LABS: BASOPHILS % (AUTO) 0.4 % (0.0-2.0); EOSINOPHILS # (AUTO) 0.2 K/uL (0.0-0.7); EOSINOPHILS % (AUTO) 2.3 % (0.0-7.0); HEMATOCRIT 29.7 % (36.7-47.1); HEMOGLOBIN 9.8 g/dL (12.5-16.3); LYMPHOCYTES # (AUTO) 0.8 K/uL (20.0-40.0); LYMPHOCYTES % (AUTO) 8.7 % (20.5-51.5); MEAN CORPUSCULAR HEMOGLOBIN 29.5 uug (23.8-33.4); MEAN CORPUSCULAR HGB CONC 33 g/dL (32.5-36.3); MONOCYTES # (AUTO) 1.3 K/uL (2.0-10.0); MONOCYTES % (AUTO) 13.8 % (0.0-11.0); NEUTROPHILS # (AUTO) 6.8 K/uL (1.8-8.9); NEUTROPHILS % (AUTO) 74.8 % (38.5-71.5); PLATELET COUNT (AUTO) 82 K/uL (152-348); RED BLOOD CELL COUNT(AUTO) 3.33 MIL/uL (4.06-5.63); WHITE BLOOD COUNT (AUTO) 9.1 K/uL (3.6-10.2)
[2017-03-13 06:30] LABS: ALANINE AMINOTRANSFERASE 26 U/L (16-63); ALKALINE PHOSPHATASE 84 U/L (50-136); ASPARTATE AMINOTRANSFERASE 24 U/L (15-37); CARBON DIOXIDE 30 mmol/L (21-32); CHLORIDE 96 mmol/L (98-107); CHOLESTEROL 94 mg/dL (<200); CREATININE 1.1 mg/dL (0.6-1.3); GLUCOSE 139 mg/dL (74-106); HDL CHOLESTEROL 43 mg/dL (40-60); PHOSPHOROUS 3.6 mg/dL (2.5-4.9); POTASSIUM 4.3 mmol/L (3.5-5.1); TOTAL PROTEIN, SERUM 6.8 g/dL (6.4-8.2); TRIGLYCERIDES 50 MG/DL (30-150); UREA NITROGEN, BLOOD 21 mg/dL (7-18)
[2017-03-13 06:37] LABS: THYROID STIMULATING HORMONE 8.278 mIU/mL (0.358-3.740)
--- NOTE | 2017-03-13 06:41 | NUR ---
PT SLEPT THROUGHOUT THE SHIFT. PT IS STILL COUGHING. PT REFUSED TO HAVE BREATHING TREATMENT. PT REFUSED ROBITUSSIN MEDICATION FOR COUGH. I RETURNED THE MEDICATION IN [facility] AND PUT IT ON THE RETURNING BIN. PT SHOWS NO SIGNS OF DISTRESS. PT KNOWS HE WILL HAVE CT SCAN IN THE MORNING AND HE IS ON NPO FROM MIDNIGHT. MEDICATIONS PRESCRIBED TO THE PT WAS GIVEN. PT VITAL SIGNS WITHIN NORMAL LIMIT. CALL LIGHT WITHIN REACH AND BED ALARM ON. SAFETY AND COMFORT PROVIDED.
[2017-03-13] MEDS: PANTOPRAZOLE SODIUM 40 MG TABLET.DR PO SCH (06:43)
--- NOTE | 2017-03-13 08:00 | NUR ---
PT RESTING IN BED WITH NO S/S OF PAIN/ACUTE DISTRESS. HARDING CATHETER NOTED DRAINING CLEAR LIZA URINE, NO SIGNS OF ACTIVE BLEEDING OR CLOTS. CONT WITH IV ANTIBIOTICS
[2017-03-13] MEDS ORDERED: IV NORMAL SALINE 250 ML IV ONE (08:11)
[2017-03-13] MEDS ORDERED: IOHEXOL 300MG/ML 100 ML INFUS..BTL ONE (08:11)
[2017-03-13] MEDS: TAMSULOSIN HCL 0.4 MG CAP.SR.24H PO SCH ×2 (08:48→21:32)
[2017-03-13] MEDS: FERROUS SULFATE 325 MG TABEC PO SCH ×2 (08:48→16:40)
[2017-03-13] MEDS: MIRALAX 17 GM POWD.PACK PO SCH (08:49)
[2017-03-13] MEDS: DOCUSATE SODIUM 100 MG CAPSULE PO SCH (08:49)
[2017-03-13] MEDS: MULTIVIT, IRON, MIN NO. 8, FA TABLET PO SCH (08:49)
[2017-03-13] MEDS: ASCORBIC ACID 500 MG TABLET PO SCH (08:49)
[2017-03-13] MEDS: PROTEIN SUPPLEMENT (PROSTAT) 30 ML LIQUID PO SCH (08:50)
[2017-03-13] MEDS: CARVEDILOL 3.125 MG TABLET PO SCH ×2 (08:58→16:30)
[2017-03-13] MEDS ORDERED: DEXTROSE 50% 50 ML DISP.SYRIN IV PRN (10:30)
[2017-03-13 10:41] LABS: BAND % (MANUAL) 15 % (0-10); EOSINOPHILS % (MANUAL) 3 % (0-8); LYMPHOCYTES % (MANUAL) 12 % (20-40); MONOCYTES % (MANUAL) 11 % (2-10); NEUTROPHILS % (MANUAL) 59 % (42-75)
[2017-03-13 11:27] VITALS: BP 105/51
[2017-03-13] MEDS: BLOOD SUGAR DIAGNOSTIC 1 EACH STRIP VI SCH ×3 (11:46→21:39)
[2017-03-13] MEDS: INSULIN REGULAR, HUMAN 300 UNIT/3 ML VIAL SQ PRN ×2 (11:50→16:39)
[2017-03-13 12:44] LABS: *OCCULT BLOOD STOOL NEGATIVE (NEGATIVE)
[2017-03-13] MEDS ORDERED: LIDOCAINE 2% (UROJET) 10 ML JELLY MM PRN (13:15)
--- NOTE | 2017-03-13 13:55 | NUR ---
SEEN BY DR Kala MILLS NOTED RESULTS OF CT ABD AND PELVIS HARDING CATH CHANGED FR 16 WITHOUT DIFFICULTY
[2017-03-13 14:26] LABS: *BILIRUBIN,URIN NEGATIVE (NEGATIVE); *BLOOD, URINE 3+ (NEGATIVE); *CLARITY,URINE CLOUDY (CLEAR); *COLOR,URINE Brown (YELLOW); *KETONES,URINE NEGATIVE (NEGATIVE); *PROTEIN,URINE 1+ (NEGATIVE); *UROBILINOGEN,URINE 0.2 E.U./dl (NORMAL); LEUKOCYTE ESTERASE ,URINE TRACE (NEGATIVE); NITRITE, URINE NEGATIVE (NEGATIVE); PH,URINE 5.5 (5.0-8.0); UGLUCOSE NEGATIVE (NEGATIVE)
--- NOTE | 2017-03-13 14:56 | NUR ---
Pharmacy clinical note-Vancomycin dosing per pharmacy S:To continue Vancomycin dosing on this patient for documented infection(no md note yet) O: BUN 21 Scr 1.1 WBC 9.1 Temp 98.5 A/P: Will continue Vancomycin 1500mg IV every 18hrs and draw trough by 4th dose(not ordered yet) for expected trough around 16. Will follow daily.
[2017-03-13] MEDS: VANCOMYCIN IV 1,500 MG in IV NORMAL SALINE 500 ML IV SCH (15:06)
[2017-03-13 15:29] LABS: MUCUS,URINE MODERATE /LPF (0-FEW); RBC,URINE TNTC /HPF (0-3)
[2017-03-13 15:58] VITALS: BP 99/45
--- NOTE | 2017-03-13 17:21 | NUR ---
PATIENT HAS NO S/S OF PAIN. HARDING CATHETER DRAINAGE MONITORED- NO ACTIVE BLEEDING. TOLERATED PT.
--- NOTE | 2017-03-13 19:25 | NUR ---
RECEIVED PT AWAKE HE'S ALERT AND ORIENTED X3 AND ABLE TO EXPRESS HIS NEEDS. HE'S NOTED WITH IV LEAKING AND INFILTRATED. DISCONTINUED IV APPLIED ICE PACK, EXTREMITY ELEVATED ON PILLOW. F/C WITH TEA COLORED URINE AND DRAINING TO GRAVITY. COMFORT MEASURES INITIATED, CALL LIGHT LEFT WITHIN PT'S REACH. WILL CONTINUE TO MONITOR PT
[2017-03-13 20:00] VITALS: BP 110/69
[2017-03-13] MEDS: ATORVASTATIN 10 MG TABLET PO SCH (21:32)
[2017-03-13] MEDS: METOPROLOL TARTRATE 25 MG TABLET PO SCH (21:33)
[2017-03-13] MEDS: INSULIN DETEMIR 300 UNIT/3 ML CARTRIDGE SQ SCH (21:42)
[2017-03-13] MEDS: ZOLPIDEM 5 MG TABLET PO PRN (21:51)
[2017-03-14] VITALS: BP 105/51
[2017-03-14 04:00] VITALS: BP 113/57
[2017-03-14] MEDS: PANTOPRAZOLE SODIUM 40 MG TABLET.DR PO SCH (06:18)
[2017-03-14] MEDS: LEVOTHYROXINE SODIUM 25 MCG TABLET PO SCH (06:20)
--- NOTE | 2017-03-14 06:28 | NUR ---
PT SLEPT WELL THROUGH THE NIGHT, HE DENIES PAIN OR ANY DISCOMFORT. F/C IS INTACT AND PATENT DRAINING YELLOW URINE. ALL NEEDS WERE MET AND ANTICIPATED. CALL LIGHT LEFT WITHIN PT'S REACH
[2017-03-14 06:47] LABS: ALANINE AMINOTRANSFERASE 42 U/L (16-63); ALKALINE PHOSPHATASE 85 U/L (50-136); ASPARTATE AMINOTRANSFERASE 39 U/L (15-37); BILIRUBIN,TOTAL 0.7 mg/dL (0.2-1.0); CARBON DIOXIDE 29 mmol/L (21-32); CHLORIDE 100 mmol/L (98-107); GLUCOSE 98 mg/dL (74-106); MAGNESIUM 2.1 mg/dL (1.8-2.4); PHOSPHOROUS 4.4 mg/dL (2.5-4.9); POTASSIUM 3.7 mmol/L (3.5-5.1); TOTAL PROTEIN, SERUM 6.5 g/dL (6.4-8.2); UREA NITROGEN, BLOOD 18 mg/dL (7-18)
[2017-03-14] MEDS: BLOOD SUGAR DIAGNOSTIC 1 EACH STRIP VI SCH ×4 (06:59→21:30)
[2017-03-14 07:14] LABS: BASOPHILS % (AUTO) 0.6 % (0.0-2.0); EOSINOPHILS # (AUTO) 0.4 K/uL (0.0-0.7); EOSINOPHILS % (AUTO) 5.8 % (0.0-7.0); HEMATOCRIT 28.3 % (36.7-47.1); HEMOGLOBIN 9.3 g/dL (12.5-16.3); LYMPHOCYTES # (AUTO) 0.9 K/uL (20.0-40.0); LYMPHOCYTES % (AUTO) 12.7 % (20.5-51.5); MEAN CORPUSCULAR HEMOGLOBIN 29.3 uug (23.8-33.4); MEAN CORPUSCULAR HGB CONC 33 g/dL (32.5-36.3); MEAN CORPUSCULAR VOLUME 88.5 fL (73.0-96.2); MONOCYTES # (AUTO) 0.9 K/uL (2.0-10.0); MONOCYTES % (AUTO) 13.5 % (0.0-11.0); NEUTROPHILS # (AUTO) 4.7 K/uL (1.8-8.9); NEUTROPHILS % (AUTO) 67.4 % (38.5-71.5); PLATELET COUNT (AUTO) 81 K/uL (152-348); RED BLOOD CELL COUNT(AUTO) 3.19 MIL/uL (4.06-5.63)
[2017-03-14] MEDS: PROTEIN SUPPLEMENT (PROSTAT) 30 ML LIQUID PO SCH (08:00)
[2017-03-14] MEDS: FERROUS SULFATE 325 MG TABEC PO SCH ×2 (08:11→16:58)
[2017-03-14] MEDS: DOCUSATE SODIUM 100 MG CAPSULE PO SCH (08:11)
[2017-03-14] MEDS: ASCORBIC ACID 500 MG TABLET PO SCH (08:11)
[2017-03-14] MEDS: TAMSULOSIN HCL 0.4 MG CAP.SR.24H PO SCH ×2 (08:11→21:21)
[2017-03-14] MEDS: MULTIVIT, IRON, MIN NO. 8, FA TABLET PO SCH (08:11)
[2017-03-14] MEDS: METOPROLOL TARTRATE 25 MG TABLET PO SCH ×2 (08:13→21:25)
[2017-03-14] MEDS: MIRALAX 17 GM POWD.PACK PO SCH (08:13)
--- NOTE | 2017-03-14 10:00 | NUR ---
pt seen on rounding. vitals stable. iv line intact. pt has tyson intact. no signs of bleeding on catheter. pt assisted to the bathroom. pt has no new injuries . will continue to monitor
[2017-03-14] MEDS: VANCOMYCIN IV 1,500 MG in IV NORMAL SALINE 500 ML IV SCH (10:22)
[2017-03-14 10:44] LABS: BAND % (MANUAL) 3 % (0-10); BASOPHILS % (MANUAL) 1 % (0-2); EOSINOPHILS % (MANUAL) 7 % (0-8); LYMPHOCYTES % (MANUAL) 13 % (20-40); MONOCYTES % (MANUAL) 11 % (2-10); NEUTROPHILS % (MANUAL) 65 % (42-75)
[2017-03-14 11:00] VITALS: BP 101/52
[2017-03-14] MEDS: INSULIN REGULAR, HUMAN 300 UNIT/3 ML VIAL SQ PRN ×3 (12:01→21:38)
--- NOTE | 2017-03-14 13:46 | NUR ---
Pharmacy clinical note-Vancomycin dosing per pharmacy S:To continue Vancomycin dosing on this patient for documented infection(for sepsis/ bacteremia) O: BUN 18 Scr 1.0 WBC 7.0 Temp 98.4 A/P: Will continue Vancomycin 1500mg IV every 18hrs and draw trough by 4th dose(ordered for tomorrow at 0300-will endorse nurse to hold for trough over 20) for expected trough around 16. Will follow daily.
--- NOTE | 2017-03-14 13:49 | NUR ---
pt seen by md segundo. ordered to have tyson removed on 03/15/17 at 0700. collect urine in a bottle and have pt have a bladder scan at 1200. report to md segundo
[2017-03-14 15:04] VITALS: BP 118/53
[2017-03-14 15:10] LABS: *TESTOSTERONE, SERUM 79 ng/dL (264-916)
[2017-03-14 20:00] VITALS: BP 121/54
--- NOTE | 2017-03-14 20:00 | NUR ---
PT IS AWAKE IN BED, HE DENIES PAIN OR ANY DISCOMFORT. HE'S ON TELE WITH A-FIB RHYTHM AT 76. F/C IS INTACT AND PATENT DRAINING YELLOW URINE TO GRAVITY, NO HEMATURIA IN URINE. SAFETY MEASURES IN PLACE, CALL LIGHT PLACED WITHIN PT'S REACH. WILL CONTINUE TO MONITOR PT
[2017-03-14] MEDS: LACTOBACILLUS RHAMNOSUS GG 1 EACH CAPSULE PO SCH (21:26)
[2017-03-14] MEDS: ATORVASTATIN 10 MG TABLET PO SCH (21:26)
[2017-03-14] MEDS: INSULIN DETEMIR 300 UNIT/3 ML CARTRIDGE SQ SCH (21:37)
[2017-03-14] MEDS: ZOLPIDEM 5 MG TABLET PO PRN (22:24)
[2017-03-15] VITALS: BP 108/55
[2017-03-15 04:00] VITALS: BP 115/55
[2017-03-15] MEDS: VANCOMYCIN IV 1,500 MG in IV NORMAL SALINE 500 ML IV SCH (04:05)
[2017-03-15] MEDS: PANTOPRAZOLE SODIUM 40 MG TABLET.DR PO SCH (06:11)
[2017-03-15] MEDS: LEVOTHYROXINE SODIUM 25 MCG TABLET PO SCH (06:11)
[2017-03-15] MEDS: BLOOD SUGAR DIAGNOSTIC 1 EACH STRIP VI SCH ×3 (06:29→16:58)
--- NOTE | 2017-03-15 06:43 | NUR ---
PT IS ASLEEP BUT EASILY AROUSABLE SLEPT WELL THROUGH THE NIGHT, HE DENIES PAIN OR ANY DISCOMFORT. F/C TO BE DISCONTINUED AT 0700 PER MD ORDERS. ALL NEEDS WERE MET ON THIS VISIT
[2017-03-15 06:45] LABS: BASOPHILS # (AUTO) 0.1 K/uL (0.0-8.0); EOSINOPHILS # (AUTO) 0.4 K/uL (0.0-0.7); HEMOGLOBIN 9.3 g/dL (12.5-16.3); LYMPHOCYTES # (AUTO) 1.1 K/uL (20.0-40.0); LYMPHOCYTES % (AUTO) 18.7 % (20.5-51.5); MEAN CORPUSCULAR HEMOGLOBIN 29.4 uug (23.8-33.4); MEAN CORPUSCULAR HGB CONC 33 g/dL (32.5-36.3); MEAN CORPUSCULAR VOLUME 88.8 fL (73.0-96.2); MONOCYTES # (AUTO) 0.6 K/uL (2.0-10.0); MONOCYTES % (AUTO) 11.5 % (0.0-11.0); NEUTROPHILS # (AUTO) 3.5 K/uL (1.8-8.9); NEUTROPHILS % (AUTO) 61.8 % (38.5-71.5); PLATELET COUNT (AUTO) 108 K/uL (152-348); RED BLOOD CELL COUNT(AUTO) 3.15 MIL/uL (4.06-5.63); WHITE BLOOD COUNT (AUTO) 5.6 K/uL (3.6-10.2)
[2017-03-15 06:49] LABS: ALANINE AMINOTRANSFERASE 63 U/L (16-63); ALKALINE PHOSPHATASE 102 U/L (50-136); ASPARTATE AMINOTRANSFERASE 51 U/L (15-37); BILIRUBIN,TOTAL 0.6 mg/dL (0.2-1.0); CARBON DIOXIDE 29 mmol/L (21-32); CHLORIDE 101 mmol/L (98-107); CREATININE 1.1 mg/dL (0.6-1.3); GLUCOSE 126 mg/dL (74-106); MAGNESIUM 2.2 mg/dL (1.8-2.4); PHOSPHOROUS 4.7 mg/dL (2.5-4.9); POTASSIUM 4.2 mmol/L (3.5-5.1); TOTAL PROTEIN, SERUM 6.6 g/dL (6.4-8.2); UREA NITROGEN, BLOOD 20 mg/dL (7-18)
--- NOTE | 2017-03-15 08:00 | NUR ---
AWAKE ALERT AND COOPERATIVE, NO SS OF PAIN OR DISTRESS. NO SIGNS OF BLEEDING FROM URINE. SEEN BY HOSPITALIST SEE NOTES
[2017-03-15] MEDS: LACTOBACILLUS RHAMNOSUS GG 1 EACH CAPSULE PO SCH (08:22)
[2017-03-15] MEDS: MIRALAX 17 GM POWD.PACK PO SCH (08:23)
[2017-03-15] MEDS: ASCORBIC ACID 500 MG TABLET PO SCH (08:23)
[2017-03-15] MEDS: DOCUSATE SODIUM 100 MG CAPSULE PO SCH (08:23)
[2017-03-15] MEDS: FERROUS SULFATE 325 MG TABEC PO SCH ×2 (08:23→16:58)
[2017-03-15] MEDS: MULTIVIT, IRON, MIN NO. 8, FA TABLET PO SCH (08:23)
[2017-03-15] MEDS: PROTEIN SUPPLEMENT (PROSTAT) 30 ML LIQUID PO SCH (08:23)
[2017-03-15] MEDS: TAMSULOSIN HCL 0.4 MG CAP.SR.24H PO SCH (08:23)
[2017-03-15] MEDS: METOPROLOL TARTRATE 25 MG TABLET PO SCH (08:29)
--- NOTE | 2017-03-15 08:45 | NUR ---
GAVE REPORT TO [facility] FOR THE PT TO BE TRANSPORTED TO [facility]. PT IN A GURNEY.PT IV INTACT AND PATENT AND IN A HEPLOCK. PT VITAL SIGNS WIHTIN NORMAL LIMIT. SAFETY AND COMFORT PROVIDED. Addendum: 03/15/17 at 2125 by PHILLIP FROST RN WRONG TIME SHOULD BE 1945 H
--- NOTE | 2017-03-15 08:57 | NUR ---
Pharmacy clinical note-Vancomycin dosing per pharmacy S:To continue Vancomycin dosing on this patient for documented infection(for sepsis/ bacteremia) O: BUN 20 Scr 1.1 WBC 5.6 Temp 98.7 Trough: 12.3 at 0315 today A/P: Will change regimen from Vancomycin 1500mg IV every 18hrs to 1500mg q15hr for new estimated trough of 16.7. Second dose today at 1900. Will order trough before 4th scheduled dose (not ordered yet). Will monitor renal fxn and dose per level if were to become unstable. Will follow daily.
[2017-03-15 10:46] VITALS: BP 124/65
--- NOTE | 2017-03-15 12:16 | NUR ---
VOIDED 200 ML, PVR [phone], HOSPITALIST MADE AWARE SAID TO REINSERT HARDING
[2017-03-15] MEDS ORDERED: PROT30LI PO (12:39)
[2017-03-15] MEDS ORDERED: Blood Sugar Diagnostic VI (12:39)
[2017-03-15] MEDS ORDERED: ALBU1.25 NEB (12:39)
[2017-03-15] MEDS ORDERED: POLY17PO4 PO (12:39)
[2017-03-15] MEDS ORDERED: Multivit, Iron, Min No. 8, Fa PO (12:39)
[2017-03-15] MEDS ORDERED: LEVO25TA9 PO (12:39)
[2017-03-15] MEDS ORDERED: IPRA0.2S6 NEB (12:39)
[2017-03-15] MEDS ORDERED: GUAI5SYR PO (12:39)
[2017-03-15] MEDS ORDERED: RXVAN XX ×2 (12:39→12:56)
[2017-03-15] MEDS ORDERED: METO25TA6 PO (12:39)
[2017-03-15] MEDS ORDERED: INSU100V28 SQ (12:39)
[2017-03-15] MEDS ORDERED: LACT1CAP57 PO (12:39)
[2017-03-15 15:02] VITALS: BP 122/62
--- NOTE | 2017-03-15 15:10 | NUR ---
PATIENT VOIDED 150 ML, PVR [phone] DR MILLS WILL BE IN TO SEE PATIENT
[2017-03-15] MEDS ORDERED: VANCOMYCIN IV 1,500 MG in IV NORMAL SALINE 500 ML IV SCH (19:00)
--- NOTE | 2017-03-15 19:10 | NUR ---
Received pt awake, alert and oriented. IV intact and patent. call light within reach. bed alarm on.
--- NOTE | 2017-03-15 20:45 | NUR ---
GAVE REPORT TO [facility] FOR THE PT. TO BE TRANSPORTED TO [facility]. PT IN A GURNEY. PT IV INTACT AND PATENT AND IN A HEPLOCK. PT VITAL SIGNS WITHIN NORMAL LIMIT. DISCHARGE PAPERS OF THE PT GIVEN TO [facility] SAFETY AND COMFORT PROVIDED TO THE PT..
== END 2017-03-15 21:00 | DRG 871 ==
LOC: ER 19:56 → TELE 03-12 00:21 → MED 03-15 10:20
PROVIDERS: ADMIT Internal Medicine; ATTEND Internal Medicine
PROC: 3E1K38Z Irrigation of Genitourinary Tract using Irrigating Substance, Percutaneous Approach (ICD-10-PCS; 2017-03-13)
PROC: 0T2BX0Z Change Drainage Device in Bladder, External Approach (ICD-10-PCS; principal; 2017-03-15)
DX: A41.02 Sepsis due to Methicillin resistant Staphylococcus aureus (principal); N17.0 Acute kidney failure with tubular necrosis; E44.0 Moderate protein-calorie malnutrition; J18.9 Pneumonia, unspecified organism; E11.22 Type 2 diabetes mellitus with diabetic chronic kidney disease; D68.9 Coagulation defect, unspecified; D69.6 Thrombocytopenia, unspecified; I13.0 Hypertensive heart and chronic kidney disease with heart failure and stage 1 through stage 4 chronic kidney disease, or unspecified chronic kidney disease; I50.32 Chronic diastolic (congestive) heart failure; E87.1 Hypo-osmolality and hyponatremia; N39.0 Urinary tract infection, site not specified; J44.0 Chronic obstructive pulmonary disease with (acute) lower respiratory infection; A41.81 Sepsis due to Enterococcus; E11.65 Type 2 diabetes mellitus with hyperglycemia; I48.2 Chronic atrial fibrillation; E83.42 Hypomagnesemia; R31.0 Gross hematuria; T83.021A Displacement of indwelling urethral catheter, initial encounter; Y73.1 Therapeutic (nonsurgical) and rehabilitative gastroenterology and urology devices associated with adverse incidents; Z86.74 Personal history of sudden cardiac arrest; E66.9 Obesity, unspecified; N18.9 Chronic kidney disease, unspecified; Z79.01 Long term (current) use of anticoagulants; Z79.4 Long term (current) use of insulin; Z68.37 Body mass index [BMI] 37.0-37.9, adult; Z87.440 Personal history of urinary (tract) infections; Z96.651 Presence of right artificial knee joint; Z85.828 Personal history of other malignant neoplasm of skin; Z79.899 Other long term (current) drug therapy; N40.1 Benign prostatic hyperplasia with lower urinary tract symptoms; R33.8 Other retention of urine; E78.00 Pure hypercholesterolemia, unspecified; K59.00 Constipation, unspecified; K42.9 Umbilical hernia without obstruction or gangrene; Y92.129 Unspecified place in nursing home as the place of occurrence of the external cause; I45.10 Unspecified right bundle-branch block; Z72.0 Tobacco use; I25.10 Atherosclerotic heart disease of native coronary artery without angina pectoris; D50.9 Iron deficiency anemia, unspecified; F03.90 Unspecified dementia, unspecified severity, without behavioral disturbance, psychotic disturbance, mood disturbance, and anxiety; E78.5 Hyperlipidemia, unspecified; E03.9 Hypothyroidism, unspecified; E83.51 Hypocalcemia; K40.20 Bilateral inguinal hernia, without obstruction or gangrene, not specified as recurrent; K76.0 Fatty (change of) liver, not elsewhere classified; K57.30 Diverticulosis of large intestine without perforation or abscess without bleeding; M19.90 Unspecified osteoarthritis, unspecified site; I08.1 Rheumatic disorders of both mitral and tricuspid valves; R74.0 Nonspecific elevation of levels of transaminase and lactic acid dehydrogenase [LDH]
CPT/HCPCS: 36415; 70030-TC; 71045; 71046; 83550; 83605; 83735; 84100; 84153; 84156; 84300; 84403; 84443; 85025; 85730; 87040; 87077; 87086; 93005; 97110; 97116; 97530; A4663; J0696; J1815; J3370; J3475; J3490; J7040; J7050; J7060; Q9967